=== PATIENT | female | born 2000 | race Caucasian/White ===

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

== ENCOUNTER 2020-05-24 22:47 | Emergency (ER) | payer MEDICAID ==
[2020-05-24 23:07] VITALS: BP 142/95; PULSE 65
[2020-05-24] MEDS ORDERED: Proparacaine 0.5% Ophth Soln 15 ML Bottle EYELF ONE (23:17)
--- NOTE | 2020-05-25 00:01 | EDM.PDOC ---
ED HPI GENERAL MEDICAL PROBLEM - General Chief Complaint: ENT Problem Stated Complaint: POKED IN LEFT EYE Time Seen by Provider: 05/24/20 23:17 Source of Information: Reports: Patient History Limitations: Reports: No Limitations - History of Present Illness INITIAL COMMENTS - FREE TEXT/NARRATIVE: Gerri is a 19-year-old female presenting to the ED for evaluation of pain and blurred vision in her left eye. Her son was playing with a sticker and was trying to pull it apart when his hand slipped striking her in the eye. She complains of sharp pain in the eye and blurred vision. The incident occurred several hours ago. Her mom made her concerned because of the possibility of the eye "to deflating" due to the injury. Left Eye Pain Score (Numeric/FACES): 1 - Related Data Allergies Allergy/AdvReac Type Severity Reaction Status Date / Time acetaminophen [From NyQuil] AdvReac Nausea Verified 05/24/20 23:11 dextromethorphan AdvReac Nausea Verified 05/24/20 23:11 [From NyQuil] doxylamine [From NyQuil] AdvReac Nausea Verified 05/24/20 23:11 pseudoephedrine [From NyQuil] AdvReac Nausea Verified 05/24/20 23:11 Home Meds: Home Meds NK [No Known Home Meds] 05/24/20 [History] Past Medical History - Past Health History Medical/Surgical History: Denies Medical/Surgical History FINANCIAL MANAGEMENT History: Reports: , Other (See Below) Other FINANCIAL MANAGEMENT History: Infected placenta 03/15/2017 Musculoskeletal History: Reports: Other (See Below) Other Musculoskeletal History: scoliosis Neurological History: Reports: Headaches, Chronic - Past Surgical History Head Surgeries/Procedures: Reports: None Neurological Surgical History: Reports: None Musculoskeletal Surgical History: Reports: None Social & Family History - Tobacco Use Tobacco Use Status *Q: Never Tobacco User - Caffeine Use Caffeine Use: Reports: Coffee, Soda, Tea - Recreational Drug Use Recreational Drug Use: No ED ROS ENT - Review of Systems Review Of Systems: See Below Constitutional: Reports: No Symptoms HEENT: Reports: Eye Pain, Vision Change (Blurred vision). Denies: Eye Discharge Respiratory: Reports: No Symptoms Cardiovascular: Reports: No Symptoms GI/Abdominal: Reports: No Symptoms ED EXAM, ENT - Physical Exam Exam: See Below Exam Limited By: No Limitations General Appearance: Alert, No Apparent Distress, Anxious Eye Exam: Left Eye: Conjunctival Injection, Corneal Abrasion, Vision Changes (Blurred vision on the left eye), Other (Fluorescein was instilled into the eye showing a small corneal abrasion just over the iris.), Bilateral Eye: EOMI, PERRL Neurological: Alert, Oriented, Normal Cognition, No Motor/Sensory Deficits Course - Vital Signs Last Recorded V/S: Last Vital Signs Temp 36.4 C 05/24/20 23:13 Pulse 65 05/24/20 23:13 Resp 16 05/24/20 23:13 BP 142/95 H 05/24/20 23:13 Pulse Ox 100 05/24/20 23:13 - Orders/Labs/Meds Meds: Medications Discontinued Medications Generic Name Dose Route Start Last Admin Trade Name Freq PRN Reason Stop Dose Admin Proparacaine HCl 0.5 ml 05/24/20 23:17 05/24/20 23:40 Proparacaine 0.5% Ophth Soln EYELF 05/24/20 23:18 1 drop ONETIME ONE Administration - Re-Assessments/Exams Free Text/Narrative Re-Assessment/Exam: 05/25/20 00:02 Kassandra has a small corneal abrasion over the iris on the left eye. We will put her on erythromycin ophthalmic ointment with 1/2 inch ribbon applied 3 times a day for the next 3 days. I discussed with her that it will make the vision in this eye more blurry because of the way it changes the way light is bent going through the lens. This will help lubricate the eye and prevent infection. I assured her that this will heal without any long-term effects. Indications return to ED were discussed and she was discharged in satisfactory condition. Departure - Departure Time of Disposition: 00:04 Disposition: Home, Self-Care 01 Clinical Impression: Injury of conjunctiva and corneal abrasion of left eye w/o FB Qualifiers: Encounter type: initial encounter Qualified Code(s): S05.02XA - Injury of conjunctiva and corneal abrasion without foreign body, left eye, initial encounter - Discharge Information *PRESCRIPTION DRUG MONITORING PROGRAM REVIEWED*: Not Applicable *COPY OF PRESCRIPTION DRUG MONITORING REPORT IN PATIENT ASHLEY: Not Applicable Instructions: Corneal Abrasion, [id number] Referrals: PCP,None [Primary Care Provider] - Care Plan Goals: I have prescribed erythromycin ophthalmic ointment to be applied to the eye 3 times a day for 3 days. This will change your vision making it more blurry because of the change in the way light bends through the eye. In addition this will help lubricate the eye to make it less painful. It will also prevent infection. I fully anticipate that she will recover without any long-term ill effects. Sepsis Event Note (ED) - Evaluation Sepsis Screening Result: No Definite Risk - Focused Exam Vital Signs: Vital Signs Temp Pulse Resp BP Pulse Ox 05/24/20 23:13 36.4 C 65 16 142/95 H 100 05/24/20 23:06 36.4 C 65 16 142/95 H 100 - Problem List & Annotations (1) Injury of conjunctiva and corneal abrasion of left eye w/o FB SNOMED Code(s): 972738025, [id number], [id number] Code(s): S05.02XA - INJ CONJUNCTIVA AND CORNEAL ABRASION W/O FB, LEFT EYE, INIT Status: Acute Priority: Medium Current Visit: Yes Qualifiers: Encounter type: initial encounter Qualified Code(s): S05.02XA - Injury of conjunctiva and corneal abrasion without foreign body, left eye, initial encounter - Problem List Review Problem List Initiated/Reviewed/Updated: Yes
== END 2020-05-25 00:13 | disposition home or self-care (01) ==
LOC: JP.ED 22:47
DX: S05.02XA Injury of conjunctiva and corneal abrasion without foreign body, left eye, initial encounter (principal); M41.9 Scoliosis, unspecified; Z88.6 Allergy status to analgesic agent; Z88.8 Allergy status to other drugs, medicaments and biological substances; Z88.1 Allergy status to other antibiotic agents; W22.8XXA Striking against or struck by other objects, initial encounter
CPT/HCPCS: 99283; A9270

== ENCOUNTER 2022-04-19 13:38 | Emergency (ER) | payer MEDICAID ==
[2022-04-19 13:55] VITALS: BP 121/87; PULSE 102
[2022-04-19 14:46] LABS: CORONAVIRUS COVID-19 NAA NEGATIVE (NEGATIVE)
== END 2022-04-19 15:07 | disposition home or self-care (01) ==
LOC: JP.ED 13:38
DX: J06.9 Acute upper respiratory infection, unspecified (principal); J02.9 Acute pharyngitis, unspecified; Z88.6 Allergy status to analgesic agent; Z88.8 Allergy status to other drugs, medicaments and biological substances; Z86.16 Personal history of COVID-19; Z20.822 Contact with and (suspected) exposure to COVID-19
CPT/HCPCS: 0241U; 87081; 87880; 99283